=== PATIENT | male | born 2000 ===

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

== ENCOUNTER 2018-12-26 09:00 | Emergency (ER) | payer BC ==
[2018-12-26 10:16] VITALS: BP 125/85
[2018-12-26] MEDS ORDERED: Dexamethasone IV* 4 MG/ML 1 ML (4 MG) PO ONE (10:29)
--- NOTE | 2018-12-26 10:35 | UC ---
General HPI - HPI Summary HPI Summary: sore throat and "swollen uvula" since yesterday. my tonsils are always big. no trouble breathing or with swallowing. - History of Current Complaint Chief Complaint: UCGeneralIllness Stated Complaint: SORE THROAT Time Seen by Provider: 12/26/18 10:08 Hx Obtained From: Patient Timing: Constant Pain Intensity: 2 Associated Signs & Symptoms: Negative: Fever, Headache - Allergy/Home Medications Allergies/Adverse Reactions: Allergies Allergy/AdvReac Type Severity Reaction Status Date / Time amoxicillin Allergy Rash Verified 12/26/18 10:13 PMH/Surg Hx/FS Hx/Imm Hx Previously Healthy: Yes - Surgical History Surgical History: Yes Surgery Procedure, Year, and Place: Bone marrow aspiration x 2. adenoidectomy. ear tubes as child - Family History Known Family History: Positive: Cardiac Disease - father, Hypertension - mother Negative: Diabetes - Social History Alcohol Use: Occasionally Substance Use Type: None Smoking Status (MU): Never Smoked Tobacco - Immunization History Most Recent Influenza Vaccination: not this season Vaccination Up to Date: Yes Review of Systems All Other Systems Reviewed And Are Negative: Yes Constitutional: Positive: Negative Skin: Positive: Negative Eyes: Positive: Negative ENT: Positive: Sore Throat Respiratory: Positive: Negative Cardiovascular: Positive: Negative Gastrointestinal: Positive: Negative Genitourinary: Positive: Negative Motor: Positive: Negative Neurovascular: Positive: Negative Musculoskeletal: Positive: Negative Neurological: Positive: Negative Psychological: Positive: Negative Physical Exam Triage Information Reviewed: Yes Appearance: Well-Appearing Vital Signs: Initial Vital Signs Temp 98.3 F 12/26/18 10:13 Pulse 78 12/26/18 10:13 Resp 16 12/26/18 10:13 BP 125/85 12/26/18 10:13 Pulse Ox 99 12/26/18 10:13 Vital Signs Reviewed: Yes Eyes: Positive: Conjunctiva Clear ENT: Positive: Pharyngeal erythema, TMs normal, Tonsillar swelling - ? MILD, Uvula midline - but modeartely swollen and red.. Negative: Nasal congestion, Nasal drainage, Tonsillar exudate, Trismus, Muffled voice, Hoarse voice Diagnostics - Laboratory Diagnostic Studies Completed/Ordered: rapid strep=negative Course/Dx - Course Course Of Treatment: RAPID STREP=NEG, TC=PENDING. GIVEN PE, I AM GOING TO COVER PT FOR A PRESUMPTIVE BACTERIAL INFECTION. PT AGREES TO GO TO ER FOR ANY WORSENING. NEED FOR CLOSE F/U D/W PT WELL. - Differential Dx - Multi-Symptom Differential Diagnoses: Other - pharyngitis, uvulitis. no concern for abscess. - Diagnoses Provider Diagnosis: Uvulitis Discharge - Sign-Out/Discharge Documenting (check all that apply): Patient Departure All imaging exams completed and their final reports reviewed: No Studies - Discharge Plan Condition: Stable Disposition: HOME Prescriptions: Clindamycin Cap(NF) [Clindamycin Cap 300 mg Cap(NF)] 300 mg PO TID 10 Days #30 cap predniSONE [Prednisone 20 MG TAB] 40 mg PO DAILY 3 Days #6 tablet Patient Education Materials: Uvulitis (ED) Referrals: Tom Gonzales MD [Primary Care Provider] - 3 Days - Billing Disposition and Condition Condition: STABLE Disposition: Home
== END 2018-12-26 10:48 | disposition home or self-care (01) ==
LOC: UCCORT 09:00
DX: K12.2 Cellulitis and abscess of mouth (principal); Z88.0 Allergy status to penicillin
CPT/HCPCS: 87070; 87077; 87651; 99212; G0463; J1100